=== PATIENT | male | born 1970 | race Caucasian/White ===

== ENCOUNTER 2016-10-30 23:25 | Emergency (ER) | payer SELFPAY ==
[2016-10-31] MEDS ORDERED: SODIUM CHLORIDE 0.9% 1,000 ML ONE (00:44)
[2016-10-31] MEDS ORDERED: BENZONATATE 100 MG CAP PO ONE (01:05)
[2016-10-31] MEDS ORDERED: METFORMIN 500 MG TAB PO ONE (01:15)
[2016-10-31] MEDS ORDERED: humuLIN REG INSULIN ONE (02:05)
== END 2016-10-31 04:30 | disposition home or self-care (01) ==
LOC: ER 23:25
DX: J20.9 Acute bronchitis, unspecified (principal); E11.65 Type 2 diabetes mellitus with hyperglycemia; I10 Essential (primary) hypertension
CPT/HCPCS: 71020; 80047; 81003; 82947; 85014; 87804; 87880; 96360; 96372